=== PATIENT | male | born 1995 | race African-American/Black ===

== ENCOUNTER 2019-01-09 12:53 | Emergency (ER) | payer OTHER ==
[2019-01-09 13:01] VITALS: BP 161/83
[2019-01-09] MEDS ORDERED: DIPH/PERTUSS(ACELL)/TETANUS VAC/PF 0.5 ML SYR (>=10YO) IM ONE (13:57)
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
[2019-01-09] MEDS ORDERED: LIDOCAINE 1% INJ-PF (10 MG/ML) 30 ML SDV INJ ONE (14:09)
== END 2019-01-09 14:50 | disposition home or self-care (01) ==
LOC: ER 12:53
PROC: 0HQ1XZZ Repair Face Skin, External Approach (ICD-10-PCS; principal; 2019-01-09)
DX: S01.81XA Laceration without foreign body of other part of head, initial encounter (principal); Y08.89XA Assault by other specified means, initial encounter
CPT/HCPCS: 99283; 90715; 12011; J3490